=== PATIENT | male | born 1990 | race Two or more races ===

== ENCOUNTER 2022-02-03 02:40 | Emergency (ER) | payer OTHER ==
[~2022-02-03] VITALS: Ht 180.3 cm; Wt 90.7 kg
--- NOTE | 2022-02-03 04:20 | NUR ---
Patient discharged to home in stable condition. Written and verbal after care instructions given. Patient verbalizes understanding of instruction.
[2022-02-03 04:21] VITALS: BP 140/90
== END 2022-02-03 04:21 | disposition home or self-care (01) ==
LOC: ER 02:42
DX: Z20.822 Contact with and (suspected) exposure to COVID-19 (principal); Z59.01 Sheltered homelessness
CPT/HCPCS: 99283; 87426; C9803

== ENCOUNTER 2022-07-15 15:23 | Emergency (ER) | payer OTHER ==
[~2022-07-15] VITALS: Ht 170.2 cm; Wt 70.3 kg
--- NOTE | 2022-07-15 15:45 | NUR ---
RECEIVED PT 32 YRS MALE CAME BY PANTERALENA C/O CHEST PAIN ONE HR AGO PY ON [employer] FOR MEDIACALE CLEARESS RESPIRATION SPONT AND EASY DINESISS DISTRESS
--- NOTE | 2022-07-15 16:00 | NUR ---
CAME WITH OFFICER KAREEN AND OFFICER KEILA ALVAREZ
[2022-07-15] MEDS ORDERED: IBUPROFEN 600 MG TABLET PO ONE (16:30)
--- NOTE | 2022-07-15 16:30 | NUR ---
BLOOD DROW BY LAB TACH
[2022-07-15] MEDS ORDERED: IBUPROFEN 600 MG TABLET ONE (16:47)
--- NOTE | 2022-07-15 16:58 | NUR ---
c xray done at bed side
[2022-07-15 17:10] LABS: BASOPHILS # (AUTO) 0.1 K/uL (0.0-0.2); BASOPHILS % (AUTO) 1.4 % (0.0-2.0); EOSINOPHILS % (AUTO) 1.1 % (0.0-6.0); HEMATOCRIT 49 % (39-51); LYMPHOCYTES # (AUTO) 1.7 K/uL (0.8-4.8); LYMPHOCYTES % (AUTO) 24.4 % (20.0-44.0); MEAN CORPUSCULAR HGB CONC 33 g/dl (31.0-36.0); MEAN CORPUSCULAR VOLUME 89 fL (80-96); MONOCYTES # (AUTO) 0.7 K/uL (0.1-1.30); MONOCYTES % (AUTO) 9.8 % (2.0-12.0); NEUTROPHILS # (AUTO) 4.4 K/uL (1.8-8.9); NEUTROPHILS % (AUTO) 63.3 % (43.0-81.0); PLATELET COUNT (AUTO) 279 K/uL (150-450); RED BLOOD CELL COUNT(AUTO) 5.46 MIL/uL (4.5-6.0); WHITE BLOOD COUNT (AUTO) 6.9 K/uL (4.3-11.0)
[2022-07-15 17:28] LABS: CALCIUM, SERUM 8.7 mg/dL (8.5-10.1); CREATININE 0.7 mg/dL (0.6-1.3); POTASSIUM 4.3 mmol/L (3.5-5.1)
[2022-07-15 17:36] LABS: ALBUMIN 3.8 g/dL (3.4-5.0); BILIRUBIN,TOTAL 0.7 mg/dL (0.2-1.0); TOTAL PROTEIN, SERUM 7.3 g/dL (6.4-8.2)
[2022-07-15 17:55] VITALS: BP 122/83
== END 2022-07-15 18:08 ==
LOC: ER 15:25
DX: R07.9 Chest pain, unspecified (principal); F17.200 Nicotine dependence, unspecified, uncomplicated; Z59.00 Homelessness unspecified
CPT/HCPCS: 36415; 71045-TC; 80053-TC; 84484-TC; 85025-TC